=== PATIENT | male | born 2000 | race Caucasian/White ===

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

== ENCOUNTER 2022-08-17 18:43 | Emergency (ER) | payer OTHER ==
[~2022-08-17 18:43] MED LIST: Iopamidol-370 76% 500 ML 1 ML ONE
[2022-08-17 19:34] LABS: #Basophils 0.1 thou/uL (0.0-0.2); #Lymphocytes 2.7 thou/uL (1.20-3.40); #Monocytes 0.8 thou/uL (0.11-0.59); #Neutrophils 8.4 thou/uL (1.40-6.50); %Basophils 0.5 % (0.0-1.0); %Eosinophils 0.2 % (0.0-10.0); %Lymphocytes 22.6 % (28.0-48.0); %Monocytes 6.7 % (0.0-4.0); Mean Corpuscular HGB CONC 34.1 g/dL (32.0-36.0); Mean Corpuscular Hemoglobin 31.1 pg (25.0-35.0); Mean Corpuscular Volume 91.3 fl (78.0-98.0); Mean Platelet Volume 7.4 fL (7.4-10.4); Platelet Count 223 10x3/uL (130-400); RBC Distribution Width 11.6 % (11.5-14.5); Red Blood Cell (RBC) Count 4.82 mill/uL (4.00-5.20)
[2022-08-17 19:55] LABS: ALT (SGPT) 11 U/L (8-55); AST (SGOT) 16 U/L (10-45); Albumin 4.2 g/dL (3.5-5.0); Alkaline Phosphatase 56 U/L (50-130); Anion Gap 10 mmol/L (10-20); BUN (Urea Nitrogen) 12 mg/dL (8.4-21.0); Bilirubin, Total 0.9 mg/dL (0.2-1.2); Calc. Creatinine Clearance 0 mL/min (70-130); Calcium 8.9 mg/dL (7.8-10.44); Carbon Dioxide 24 mmol/L (22-29); Chloride 102 mmol/L (98-107); Estimated GFR 121; Globulin 2.2 g/dL (2.4-3.5); Glucose 82 mg/dL (70-105); Lipase 11 U/L (8-78); Potassium 3.8 mmol/L (3.5-5.1); Protein, Total 6.4 g/dL (6.0-8.3); Sodium 132 mmol/L (136-145)
[2022-08-17] MEDS ORDERED: Morphine 4 MG/ML VIAL ONE (20:00)
[2022-08-17] MEDS ORDERED: Ondansetron PF 4 MG/2 ML Vial ONE (20:00)
[2022-08-17 20:29] LABS: Bacteria/HPF None Seen HPF (None Seen); Bilirubin Negative (Negative); Blood, Urine Negative (Negative); Clarity Clear (Clear); Glucose, Urine (Dipstick) Normal (Negative); Ketone, Urine 60 mg/dL (Negative); Leukocyte Negative Leu/uL (Negative); Mucous/LPF Rare LPF (<2+); Nitrite Negative (Negative); Protein, Urine (Dipstick) 30 mg/dL (Neg-Trace); RBC/HPF 0-3 HPF (0-3); Specific Gravity, Urine Greater than 1.060 (1.002-1.036); Squamous Epithelial 0-3 HPF (0-3); Urobilinogen Normal mg/dL (Less than 2); WBC/HPF 0-3 HPF (0-3)
== END 2022-08-17 20:58 | disposition home or self-care (01) ==
LOC: ERS 18:43
DX: M54.2 Cervicalgia (principal); R07.9 Chest pain, unspecified; R51.9 Headache, unspecified; V49.9XXA Car occupant (driver) (passenger) injured in unspecified traffic accident, initial encounter
CPT/HCPCS: 36415; 70450; 71260; 72125; 74177; 80053; 81003; 81015; 83690; 84443; 84484; 85025; 93005; 96374; 96375; J2270; J2405; Q9967

== ENCOUNTER 2022-10-22 16:40 | Emergency (ER) | payer OTHER | END 2022-10-22 18:46 | disposition left against medical advice (07) | LOC: ERS 16:40 | DX: Z53.21 Procedure and treatment not carried out due to patient leaving prior to being seen by health care provider (principal) ==

== ENCOUNTER 2022-11-15 17:06 | Emergency (ER) | payer OTHER | END 2022-11-15 18:28 | disposition home or self-care (01) | LOC: ERS 17:06 | DX: M54.6 Pain in thoracic spine (principal); R51.9 Headache, unspecified | CPT/HCPCS: 99283 ==